=== PATIENT | male | born 1950 | race Caucasian/White ===

== ENCOUNTER → 2016-10-25 | Outpatient (CLI) | payer OTHER, MEDICARE ==
[~2016-10-25] MED LIST: LOPRESSOR PO; MULTIVITAMIN W-1 TAB PO; PROGRAF; [UNRECOGNIZED DRUG - OTHER]
[2016-10-25 15:05] LABS: BUN/CREATININE RATIO 13.07; CALCIUM SERUM 10.8 mg/dL (8.4-10.2); CREATININE SERUM 1.3 mg/dL (0.6-1.4); GLOM FILT RATE Estimated 56.9 mL/min (>60); POTASSIUM 5.4 mmol/L (3.5-5.1)
== END | disposition home or self-care (01) ==
LOC: CLAB 14:24
PROVIDERS: Internal Medicine Cardiovascular Disease
DX: N17.9 Acute kidney failure, unspecified (principal)
CPT/HCPCS: 36415; 80048